=== PATIENT | female | born 1975 | race African-American/Black ===

== ENCOUNTER 2016-10-17 16:22 | Emergency (ER) | payer MEDICAID ==
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
[2016-10-17 18:13] VITALS: BP 117/71; PULSE 65; RESP 16; TEMP 98.5
== END 2016-10-17 18:41 | disposition home or self-care (01) ==
LOC: EC 16:22
DX: R51 Headache (principal); Z88.0 Allergy status to penicillin; Z87.81 Personal history of (healed) traumatic fracture
CPT/HCPCS: 70450; 72125; 99284

== ENCOUNTER → 2016-12-09 | Outpatient (CLI) | payer MEDICAID ==
[2016-12-09 16:36] LABS: CHCM 34.9; HCT 35.5 % (34.0-46.0); HDW 2.52; HGB 12.3 gm/dL (11.4-16.0); MCH 30.9 pg (25.0-35.0); MCHC 34.7 g/dL (31.0-37.0); MCV 89.1 fL (80.0-100.0); Mean Platelet Volume 6.9; RBC 3.98 m/uL (3.80-5.40)
[2016-12-09 16:58] LABS: ALT 26 U/L (9-52); AST 16 U/L (14-36); Alkaline Phosphatase 57 U/L (38-126); Anion Gap 6 mmol/L; Blood Urea Nitrogen 5 mg/dL (7-17); C Reactive Protein <5.0 mg/L (<10.0); Calcium 9.6 mg/dL (8.4-10.2); Carbon Dioxide 29 mmol/L (22-30); Chloride 100 mmol/L (98-107); Creatine Kinase 60 U/L (30-135); Glucose 87 mg/dL (74-99); Non-African American GFR(MDRD) >60 (>60 ml/min/1.73 sqM); Potassium 3.6 mmol/L (3.5-5.1); Sodium 135 mmol/L (137-145); Total Bilirubin 0.6 mg/dL (0.2-1.3); Total Protein 7.2 g/dL (6.3-8.2)
[2016-12-09 16:59] LABS: Rheumatoid Factor, Qnt 10 IU/mL (<12)
[2016-12-09 19:08] LABS: Erythrocyte Sedimentation Rate 18 mm/hr (0-20)
--- NOTE | 2016-12-09 23:18 | MR ---
EXAMINATION TYPE: MR cspine/lspine wo con DATE OF EXAM: 12/09/2016 9:17 PM COMPARISON: Lumbar spine of 09/17/2010 HISTORY: Neck pain, headaches, rt arm weakness, LBP, LLE radic Standard multiplanar, multisequence MRI departmental protocol Multiplanar, multisequence images of the cervical and lumbar spine were acquired. FINDINGS: Cervical vertebra are fairly normal spacing and alignment. Skull base appears normal. Brainstem is in tact. Cervical spinal cord has normal signal pattern without evidence of edema. There is no spinal st enosis. There is no cervical paraspinal mass. I see no cervical disc herniation. The lumbar vertebra have normal spacing and alignment. There is slight decreased signal in the discs at L4-5 and L5-S1. Lumbar nerve roots appear normal. The neural foramina are widely patent. There is a small posterior disc bulge at L4-5 and L5-S1 without impingement on the spinal canal. There is a de velopmentally large spinal canal. There is no lumbar paraspinal mass. The visualized sacroiliac joint s appear normal. There is no compression fracture. IMPRESSION: Negative MR scan of the cervical spine. Minor degenerative disc changes at L4-5 and L5-S1 that appear new compared to old exam. No spinal darrell nosis or fracture. Minimal disc bulging at L4-5 and L5-S1.
[2016-12-10 03:44] LABS: ANA w/Reflex to Titer POSITIVE (NEGATIVE)
== END | disposition home or self-care (01) ==
LOC: RADMRIMAIN 16:08
PROVIDERS: ATTEND Physician Assistant
DX: M51.27 Other intervertebral disc displacement, lumbosacral region (principal); M47.817 Spondylosis without myelopathy or radiculopathy, lumbosacral region; M54.2 Cervicalgia
CPT/HCPCS: 72141; 72148; 80053; 82550; 85027; 85652; 86038; 86039; 86140; 86431

== ENCOUNTER → 2017-01-24 | Outpatient (CLI) | payer MEDICAID ==
--- NOTE | 2017-01-25 08:02 | XR ---
EXAMINATION TYPE: XR Hip Complete LT DATE OF EXAM: 01/24/2017 4:35 PM COMPARISON: NONE HISTORY: Left hip pain TECHNIQUE: 2 view left hip FINDINGS: Femoral head articulates with the acetabulum. Joint spaces preserved. No acute fractures ar e evident. IMPRESSION: 1. Normal 2 view left hip
== END | disposition home or self-care (01) ==
LOC: RADXRMAIN 15:58
PROVIDERS: ATTEND Nurse Practitioner Acute Care
DX: M25.552 Pain in left hip (principal)
CPT/HCPCS: 73502

== ENCOUNTER → 2017-02-11 | Outpatient (CLI) | payer MEDICAID ==
[2017-02-11 17:51] LABS: ALT 28 U/L (9-52); AST 20 U/L (14-36); Alkaline Phosphatase 60 U/L (38-126); Anion Gap 9 mmol/L; Appearance,Urine Clear (Clear); Bacteria,Urine Occasional /hpf; Basophils % (A) 1 %; Bilirubin,Urine Negative (Negative); Blood Urea Nitrogen 8 mg/dL (7-17); C Reactive Protein <5.0 mg/L (<10.0); CH 31.5; CHCM 34.3; Calcium 9.5 mg/dL (8.4-10.2); Carbon Dioxide 29 mmol/L (22-30); Chloride 100 mmol/L (98-107); Creatine Kinase 74 U/L (30-135); Eosinophils % (A) 1 %; Glucose 84 mg/dL (74-99); Glucose,Urine (UA) Negative (Negative); HCT 36.5 % (34.0-46.0); HDW 2.71; HGB 12.4 gm/dL (11.4-16.0); Ketones,Urine Negative (Negative); Leukocyte Esterase,Urine Negative (Negative); Luc # (Auto) 0.09; Luc % (Auto) 2; Lymphocytes # (A) 1.7 k/uL (1.0-4.8); Lymphocytes % (A) 30 %; MCH 31.3 pg (25.0-35.0); MCHC 33.9 g/dL (31.0-37.0); MCV 92.3 fL (80.0-100.0); Monocytes # (A) 0.3 k/uL (0-1.0); Monocytes % (A) 5 %; Neutrophils # (A) 3.5 k/uL (1.3-7.7); Neutrophils % (A) 62 %; Nitrite,Urine Negative (Negative); Non-African American GFR(MDRD) >60 (>60 ml/min/1.73 sqM); Particle Count 1002; Protein,Urine Negative (Negative); RBC 3.95 m/uL (3.80-5.40); RBC,Urine 2 /hpf (0-5); RDW 13.8 % (11.5-15.5); Rheumatoid Factor, Qnt 19 IU/mL (<12); Sodium 138 mmol/L (137-145); Specific Gravity,Urine 1.003 (1.001-1.035); Squamous Epithelial Cell,Urine 1 /hpf (0-4); Total Bilirubin 0.5 mg/dL (0.2-1.3); Total Protein 7.7 g/dL (6.3-8.2); UA Billing (MACRO vs. MICRO) MICRO; Uric Acid 3.8 mg/dL (3.7-7.4); Urobilinogen,Urine <2.0 mg/dL (<2.0); WBC 5.7 k/uL (3.8-10.6); WBC (Perox) 5.14; WBC,Urine <1 /hpf (0-5)
[2017-02-11 18:34] LABS: Erythrocyte Sedimentation Rate 15 mm/hr (0-20)
[2017-02-11 19:13] LABS: Hepatitis B Surface Ag Index 0.06
[2017-02-11 19:30] LABS: Hepatitis C Virus IgG Index 0.04
[2017-02-11 19:39] LABS: Hepatitis C Virus IgG Ab Negative (Negative)
[2017-02-12 05:45] LABS: Complement Total (CH50) 128 CAE (54-144)
[2017-02-12 05:51] LABS: Cyclic Citrullinated Pep IgG 5 UNITS (<20)
[2017-02-12 06:03] LABS: Cardiolipin Ab IgG <9.0 GPL (<15); Cardiolipin Ab IgM 15.4 MPL (<12.5)
[2017-02-12 07:09] LABS: ANA w/Reflex to Titer POSITIVE (NEGATIVE)
[2017-02-12 11:20] LABS: Free Kappa Lt Chain Qnt, Serum 1.45 mg/dL (0.33 - 1.94); Kappa/Lambda Light Chain Ratio 1.28 (0.26 - 1.65)
[2017-02-12 12:09] LABS: Scleroderma 70 Antibody 5 UNITS (<20)
[2017-02-12 14:24] LABS: C-ANCA <1:20 Titer (<1:20); P-ANCA <1:20 Titer (<1:20)
[2017-02-13 05:21] LABS: Aldolase 3.2 U/L (1.2-7.6)
[2017-02-13 13:18] LABS: HLA B27 NEGATIVE; HLA B27 Comment SEEBELOW
[2017-02-16 14:58] LABS: Mis test requested (Blood) 14-3-3 eta Protein
== END | disposition home or self-care (01) ==
LOC: LABWHC1 16:06
PROVIDERS: ATTEND Internal Medicine Rheumatology
DX: R76.8 Other specified abnormal immunological findings in serum (principal)
CPT/HCPCS: 36415; 80053; 81001; 82085; 82164; 82306; 82550; 83516; 83520; 83883; 84165; 84439; 84443; 84550; 85025; 85613; 85652; 85730; 86038; 86039; 86140; 86147; 86160; 86162; 86200; 86225; 86235; 86255; 86334; 86431; 86803; 86812; 87340

== ENCOUNTER → 2017-06-23 | Outpatient (CLI) | payer MEDICAID ==
--- NOTE | 2017-06-23 10:55 | MM ---
Reason for exam: clinical finding. Last mammogram was performed 1 year and 2 months ago. History: Patient is nulliparous. Indicated problem(s): lump or thickening and pain in the right breast. Physical Findings: Nurse did not find any significant physical abnormalities on exam. MG 3D Diag Mammo W/Cad GIOVANI Bilateral CC and MLO view(s) were taken. Prior study comparison: April 19, 2016, bilateral MG screening mammo w CAD. April 30, 2012, left diagnostic mammogram w/CAD. There are scattered fibroglandular densities. No significant new findings when compared with previous films. These results were verbally communicated with the patient and result sheet given to the patient on 06/23/17. ASSESSMENT: Incomplete: need additional imaging evaluation, BI-RAD 0 RECOMMENDATION: Ultrasound of the right breast. (for upper inner quadrant palpable site)
--- NOTE | 2017-06-23 10:56 | USB ---
Reason for exam: additional evaluation requested from abnormal screening. History: Patient is nulliparous. US Breast RT Right breast ultrasound includes all four quadrants, the retroareolar region and axilla. Finding demonstrates no cystic or solid lesion seen. These results were verbally communicated with the patient and result sheet given to the patient on 06/23/17. ASSESSMENT: Negative, BI-RAD 1 RECOMMENDATION: Routine screening mammogram of both breasts in 1 year. Manage on a clinical basis with regard to any suspicious palpable areas.
== END | disposition home or self-care (01) ==
LOC: RADMAMWWP 08:48
PROVIDERS: ATTEND Family Medicine
DX: N64.4 Mastodynia (principal); N63 Unspecified lump in breast; R92.8 Other abnormal and inconclusive findings on diagnostic imaging of breast
CPT/HCPCS: 76641; G0204; G0279

== ENCOUNTER → 2017-11-20 | Outpatient (CLI) | payer MEDICAID ==
--- NOTE | 2017-11-20 13:13 | US ---
EXAMINATION TYPE: US abdomen complete DATE OF EXAM: 11/20/2017 COMPARISON: NONE CLINICAL HISTORY: R10.13 epigastric pain. EXAM MEASUREMENTS: Liver Length: 11.6 cm Gallbladder Wall: 0.2 cm CBD: 0.2 cm Spleen: 7.0 cm Right Kidney: 11.1 x 3.7 x 4.7 cm Left Kidney: 8.9 x 4.4 x 5.0 cm Pancreas: wnl Liver: wnl Gallbladder: wnl Evidence for sonographic Kelly's sign: no CBD: wnl Spleen: scattered echogenic foci noted throughout, somewhat obscured by overlying bowel gas Right Kidney: No hydronephrosis or masses seen Left Kidney: measures small, lower pole obscured by bowel gas Upper IVC: wnl Abd Aorta: Some portions obscured by overlying bowel gas, portions visualized wnl The liver is homogenous. The intrahepatic portion of the IVC and proximal abdominal aorta are within normal limits. There is no evidence of cholelithiasis. Common bile duct is unremarkable. The visu alized portions of the pancreas are homogenous. The spleen is unremarkable. Kidneys are symmetric a nd free of hydronephrosis. No renal lesions are seen. IMPRESSION: 1. Remote granulomatous disease. 2. Diminutive left kidney.
--- NOTE | 2017-11-20 15:22 | NM ---
EXAMINATION TYPE: NM hepatobiliary w EF DATE OF EXAM: 11/20/2017 COMPARISON: NONE HISTORY: Pain TECHNIQUE: After the intravenous administration of 5.3 mCi Tc 99m Mebrofenin hepatobiliary scintigrap hy is performed. Immediate images post injection. FINDINGS: There is satisfactory initial accumulation of tracer by the liver. The gallbladder is visualized wit hin 8 minutes. The small bowel activity is noted within 26 minutes. At one hour 8 ounces of oral en sure plus is given to mimic CCK and gallbladder ejection fraction is calculated at 63 %, in the tara l range. Therefore there is no scintigraphic evidence of cystic or common bile duct obstruction to s uggest acute cholecystitis or gallbladder dyskinesia. IMPRESSION: Exam is within normal limits.
== END | disposition home or self-care (01) ==
LOC: RADUSWWP 11:50
PROVIDERS: ATTEND Surgery Plastic and Reconstructive Surgery
DX: R10.13 Epigastric pain (principal)
CPT/HCPCS: 76700; 78226; A9537

== ENCOUNTER → 2017-12-17 | Day surgery (SDC) | payer MEDICAID ==
[2017-12-16 10:07] VITALS: BMI 35.8
[~2017-12-17] MED LIST: GLYCOPYRROLATE 0.2 MG/ML 2 ML VIAL ONE; LACTATED RINGERS 1,000 ML IV SCH; LIDOCAINE 1% 20 ML VIAL (10MG/ML) FOR IV START INTRADERMA ONE; PROPOFOL 10 MG/ML 20 ML VIAL IV ONE; fentaNYL (PF) 50 MCG/ML 2 ML AMP ONE
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
[2017-12-17 12:37] VITALS: RESP 16; TEMP 97.9
[2017-12-17 14:01] VITALS: BP 127/84; PULSE 71
--- NOTE | 2017-12-22 09:30 | P.PCN ---
Date of Procedure: 12/17/17 Description of Procedure: PREOPERATIVE DIAGNOSIS: Gastroesophageal reflux disease. POSTOPERATIVE DIAGNOSIS: Gastroesophageal reflux disease. Diaphragmatic hiatal hernia without obstruction. Erosive esophagitis. OPERATION: Esophagogastroduodenoscopy with biopsies along antrum. SURGEON: Kenya Rachel MD ANESTHESIA: MAC. INDICATIONS: The patient is a 42-year-old female who presents with a history of reflux disease. Benefits and risks of the procedure were described. Informed consent was obtained. DESCRIPTION: The patient was brought into the endoscopy suite and laid in the left lateral decubitus position. An Olympus gastroscope was passed along the posterior oropharynx down to the distal esophagus where the squamocolumnar junction was encountered at 35 cm from the incisors. The stomach was entered and no bile reflux was found. Additional findings are listed below. Biopsies with cold forceps were obtained of the antrum. The first through third portion of the duodenum was examined and unremarkable. Retroflexion of the scope confirmed Hill grade 4 lower esophageal valve. The squamocolumnar junction demostrated LA grade B erosive esophagitis. The stomach was desufflated. The patient tolerated the procedure well. FINDINGS: Squamocolumnar junction 35 cm from the incisors. Diaphragmatic hiatus at 40 cm. Hiatal hernia 5 cm, sliding type. Hill grade 4 lower esophageal valve. LA grade B erosive esophagitis. Superficial gastritis. No active duodenitis. RECOMMENDATIONS: Further recommendations pending results of pathology report. Upper endoscopy as needed. Will benefit from antireflux surgical procedure Plan - Discharge Summary New Discharge Prescriptions: No Action Multivit with Calcium,Iron,Min [Women's Multivitamin] 1 tab PO DAILY DULoxetine HCL [Cymbalta] 60 mg PO HS Discharge Medication List Multivit with Calcium,Iron,Min [Women's Multivitamin] 1 tab PO DAILY 10/17/16 [ History] DULoxetine HCL [Cymbalta] 60 mg PO HS 12/16/17 [History] Follow up Appointment(s)/Referral(s): Kenya Rachel MD [STAFF PHYSICIAN] - 01/06/18 8:45 am Patient Instructions/Handouts: *Surgery [facility] - (Anesthesia) Endoscopy Discharge Instructions, Hiatal Hernia (GEN), Upper Endoscopy (DC) Discharge Disposition: HOME SELF-CARE
== END | disposition home or self-care (01) ==
LOC: ORWHC2ENDO 10:35
PROVIDERS: ATTEND Surgery Plastic and Reconstructive Surgery
DX: K29.30 Chronic superficial gastritis without bleeding (principal); K21.0 Gastro-esophageal reflux disease with esophagitis; K22.10 Ulcer of esophagus without bleeding; K44.9 Diaphragmatic hernia without obstruction or gangrene; M79.7 Fibromyalgia; F39 Unspecified mood [affective] disorder; Z79.899 Other long term (current) drug therapy; Z88.0 Allergy status to penicillin
CPT/HCPCS: 81025; 88305; 43239; J3010; J2704

== ENCOUNTER → 2018-01-22 | Day surgery (SDC) | payer MEDICAID ==
[2018-01-21 09:38] VITALS: BMI 36.2
[2018-01-22 12:32] VITALS: BP 132/72; PULSE 84; RESP 16; TEMP 98.6
== END ==
LOC: ORWHC2ENDO 12:10
PROVIDERS: ATTEND Internal Medicine Gastroenterology
DX: K21.9 Gastro-esophageal reflux disease without esophagitis (principal); R11.10 Vomiting, unspecified; Z53.8 Procedure and treatment not carried out for other reasons
CPT/HCPCS: 91010

== ENCOUNTER 2018-03-23 09:43 | Inpatient (IN) | payer MEDICAID ==
[2018-03-18 16:00] VITALS: BMI 34.2
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
[~2018-03-23 09:43] MED LIST changes: +DEXAMETHASONE SOD PHOSPHATE 10 MG/ML 1 ML VIAL IV ONE; -GLYCOPYRROLATE 0.2 MG/ML 2 ML VIAL ONE; +HEPARIN SODIUM,PORCINE 5,000 UNIT/ML 1 ML VIAL SQ ONE; +HYDROmorphone 0.5 MG/0.5 ML SYRINGE IVP PRN; -LACTATED RINGERS 1,000 ML IV SCH; -LIDOCAINE 1% 20 ML VIAL (10MG/ML) FOR IV START INTRADERMA ONE; +ONDANSETRON 4 MG/2 ML VIAL IVP ONE; -PROPOFOL 10 MG/ML 20 ML VIAL IV ONE; +SCOPOLAMINE 1.5MG/72HR PATCH TRANSDERM STA; +ceFAZolin IN SWFI 2 GM/20 ML SYRINGE IVP ONE; -fentaNYL (PF) 50 MCG/ML 2 ML AMP ONE
[2018-03-23] MEDS: LACTATED RINGERS 1,000 ML IV SCH (10:27)
[2018-03-23] MEDS ORDERED: GLYCOPYRROLATE 0.2 MG/ML 2 ML VIAL ONE (10:36)
[2018-03-23] MEDS ORDERED: SUCCINYLCHOLINE CHLORIDE 100 MG/5 ML SYR IV ONE (10:36)
[2018-03-23] MEDS ORDERED: KETOROLAC 30 MG/ML 1 ML VIAL ONE (10:36)
[2018-03-23] MEDS ORDERED: ROCURONIUM BROMIDE 10 MG/ML 10 ML VIAL IV ONE (10:36)
[2018-03-23] MEDS ORDERED: PROPOFOL 10 MG/ML 20 ML VIAL IV ONE (10:36)
[2018-03-23] MEDS ORDERED: LIDOCAINE 1% INJ 10MG/ML (20 ML MDV) ONE (10:36)
[2018-03-23] MEDS ORDERED: HYDROmorphone (PF) 1 MG/ML ONE (10:36)
[2018-03-23] MEDS ORDERED: fentaNYL (PF) 50 MCG/ML 2 ML AMP ONE (10:36)
[2018-03-23] MEDS ORDERED: MIDAZOLAM 2 MG/2 ML VIAL ONE (10:36)
[2018-03-23] MEDS ORDERED: NEOSTIGMINE 1 MG/ML 10 ML VIAL ONE (10:36)
[2018-03-23 10:48] LABS: Basophils % (A) 1 %; Eosinophils % (A) 1 %; HCT 39.4 % (34.0-46.0); HGB 13.4 gm/dL (11.4-16.0); Lymphocytes # (A) 1.3 k/uL (1.0-4.8); Lymphocytes % (A) 23 %; MCH 29.8 pg (25.0-35.0); MCHC 33.9 g/dL (31.0-37.0); Mean Platelet Volume 6.4; Monocytes # (A) 0.2 k/uL (0-1.0); Monocytes % (A) 5 %; Neutrophils # (A) 3.7 k/uL (1.3-7.7); Neutrophils % (A) 69 %; Platelet Count 254 k/uL (150-450); RBC 4.47 m/uL (3.80-5.40); RDW 13.5 % (11.5-15.5); WBC 5.3 k/uL (3.8-10.6)
[2018-03-23 10:54] LABS: ALT 23 U/L (9-52); AST 20 U/L (14-36); Albumin 4.2 g/dL (3.5-5.0); Alkaline Phosphatase 62 U/L (38-126); Anion Gap 11 mmol/L; Blood Urea Nitrogen 6 mg/dL (7-17); Calcium 9.4 mg/dL (8.4-10.2); Carbon Dioxide 24 mmol/L (22-30); Chloride 104 mmol/L (98-107); Glucose 82 mg/dL (74-99); Potassium 3.8 mmol/L (3.5-5.1); Sodium 139 mmol/L (137-145); Total Bilirubin 0.7 mg/dL (0.2-1.3)
[2018-03-23] MEDS ORDERED: BUPIVACAINE (PF) 0.5% 30 ML VIAL SQ ONE (11:05)
[2018-03-23] MEDS ORDERED: ONDANSETRON 4 MG/2 ML VIAL IVP PRN (12:48)
[2018-03-23] MEDS ORDERED: NALOXONE 0.4 MG/ML 1 ML VIAL IV PRN (12:48)
[2018-03-23] MEDS ORDERED: HYDROcodone/APAP 5-325MG 1 EACH TAB PO PRN (12:48)
[2018-03-23] MEDS ORDERED: HYDROmorphone 0.5 MG/0.5 ML SYRINGE IVP PRN (12:51)
--- NOTE | 2018-03-23 12:57 | P.PCN ---
Date of Procedure: 03/23/18 Preoperative Diagnosis: Gastroesophageal reflux disease, symptomatic hiatal hernia, epigastric abdominal pain Postoperative Diagnosis: Same, multiple perigastric adenopathy Procedure(s) Performed: Robotic-assisted hiatal hernia repair with mesh, Intra-Op EGD Anesthesia: GETA, local Surgeon: Kenya Rachel Estimated Blood Loss (ml): 5 Pathology: other (Perigastric lymph nodes gastrohepatic ligament) Condition: stable Disposition: floor Operative Findings: 1. Hiatal hernia 3 x 3 cm, reducible 2. Thin hiatal tissue 3. Moderate perigastric adenopathy with biopsy sent 4. Hepatic adenoma right inferior lobe, 1-cm anterior surface 5. Less than 1 cm bilateral indirect inguinal hernia
[2018-03-23] MEDS ORDERED: ACETAMINOPHEN IV (For NPO) 1,000 MG in EMPTY BAG 1 BAG IVPB ONE (13:00)
[2018-03-23] MEDS: SODIUM CHLORIDE 0.9% 1,000 ML IV SCH ×2 (14:32→23:48)
[2018-03-23] MEDS: METOCLOPRAMIDE 5 MG/ML 2 ML VIAL IVP SCH ×2 (14:59→21:33)
--- NOTE | 2018-03-23 16:16 | FL ---
EXAMINATION TYPE: FL esophagus cervic/pharynx DATE OF EXAM: 03/23/2018 LIMITED UGI-ESOPHAGRAM: CLINICAL HISTORY: Hiatal hernia and reflux per patient status post Henry fundoplication surgery ear lier today. Comparison: Prior esophagram October 01, 2017 TECHNIQUE: Limited esophagram is performed utilizing 25 oz of Isovue-370. A total of 26 seconds of f luoroscopic time was utilized during procedure. 8 spot images are saved during procedure. FINDINGS: The patient swallowed contrast without difficulty or delay. Esophageal peristalsis and mo tility are within normal limits. There is good flow of contrast along the diaphragmatic hiatus into t he stomach, there is no evidence of contrast extravasation to suggest leak. No persistent hiatal nery ia is seen. Patient remains asymptomatic. Small amount of new free air under right hemidiaphragm is p resumed postsurgical. IMPRESSION: No evidence of leak or significant obstruction status post Henry fundoplication surgery earlier today.
[2018-03-23] MEDS: KETOROLAC 30 MG/ML 1 ML VIAL IVP SCH ×2 (18:08→23:48)
[2018-03-23] MEDS: ceFAZolin IN SWFI 2 GM/20 ML SYRINGE IVP SCH (18:15)
[2018-03-23] MEDS ORDERED: TAMSULOSIN 0.4 MG CAP.ER.24H PO STA (22:31)
--- NOTE | 2018-03-23 22:31 | P.PN ---
Subjective Progress Note Date: 03/23/18 She reports being unable to void following surgery. Esophagram negative for obstruction. She is tolerating liquid. Recommend Flomax. Straight cath as needed discussed. Likely discharge home tomorrow with tylenol for pain. Objective - Vital Signs Vital signs: Vital Signs Temp 98.5 F 03/23/18 13:01 Pulse 71 03/23/18 15:30 Resp 16 03/23/18 15:30 BP 103/56 03/23/18 15:30 Pulse Ox 99 03/23/18 15:30 Intake & Output 03/23/18 03/23/18 03/24/18 06:59 18:59 06:59 Intake Total 950 Output Total 5 Balance 945 Intake: IV 950 Output: Estimated Blood Loss 5 Other: # Voids 1 - Labs CBC & Chem 7: 03/23/18 10:23 03/23/18 10:23 Labs: Abnormal Lab Results - Last 24 Hours (Table) 03/23/18 Range/Units 10:23 BUN 6 L (7-17) mg/dL
[2018-03-24] MEDS: ceFAZolin IN SWFI 2 GM/20 ML SYRINGE IVP SCH (01:55)
[2018-03-24] MEDS: METOCLOPRAMIDE 5 MG/ML 2 ML VIAL IVP SCH ×2 (03:26→08:47)
[2018-03-24] MEDS: KETOROLAC 30 MG/ML 1 ML VIAL IVP SCH (06:03)
[2018-03-24] MEDS: SODIUM CHLORIDE 0.9% 1,000 ML IV SCH (08:58)
[2018-03-24] MEDS ORDERED: PANTOPRAZOLE 40 MG/10 ML VIAL IV SCH (09:00)
[2018-03-24] MEDS ORDERED: ENOXAPARIN 30 MG/0.3 ML SYRINGE SQ SCH (09:00)
[2018-03-24] MEDS: LACTATED RINGERS 1,000 ML IV SCH (10:26)
--- NOTE | 2018-03-24 11:35 | P.DS ---
Providers Date of admission: 03/23/18 09:43 Expected date of discharge: 03/24/18 Attending physician: Kenya Rachel Primary care physician: [place] [facility] Course: 42-year-old female presented on elective admission to undergo robotic-assisted hiatal hernia repair with mesh for symptomatic esophageal reflux disease with a symptomatic hiatal hernia. On the day of discharge patient was up ambulatory on the unit urinating with no difficulty tolerating diet as ordered surgical dressing sites dry afebrile and on room air sats are 97% Impression discharge diagnosis Symptomatic hiatal hernia Esophageal reflux disease symptomatic Peraesophageal hiatal hernia with gastroesophageal reflux disease Status post March 23 Robotic-assisted hiatal hernia repair with mesh, Intra-Op EGD The above impression and plan of care have been discussed and directed by signing physician. Radha Sultana nurse practitioner acting as scribe for signing physician. Plan - Discharge Summary Discharge Rx Participant: No New Discharge Prescriptions: New Bisacodyl [Dulcolax] 5 mg PO DAILY PRN #10 tablet. PRN Reason: Constipation Ondansetron Odt [Zofran Odt] 4 mg PO Q8HR PRN #9 tab PRN Reason: Nausea Simethicone 40 mg/0.6 ml Drops [Mylicon Drops] 40 mg PO PCHS PRN #30 ml PRN Reason: Gas Continue RX: Ibuprofen [Motrin] 800 mg PO Q6H PRN PRN Reason: Pain Discontinued Omeprazole [PriLOSEC] 20 mg PO AC-BRKFST Discharge Medication List RX: Ibuprofen [Motrin] 800 mg PO Q6H PRN 03/18/18 [History] Bisacodyl [Dulcolax] 5 mg PO DAILY PRN #10 tablet. 03/24/18 [Rx] Ondansetron Odt [Zofran Odt] 4 mg PO Q8HR PRN #9 tab 03/24/18 [Rx] Simethicone 40 mg/0.6 ml Drops [Mylicon Drops] 40 mg PO PCHS PRN #30 ml [Rx] Follow up Appointment(s)/Referral(s): Kenya Rachel MD [STAFF PHYSICIAN] - 04/02/18 9:30 am Patient Instructions/Handouts: Laparoscopic Hiatal Hernia Repair (DC) Activity/Diet/Wound Care/Special Instructions: Liquid diet for 2 weeks until seen by your surgeon.( follow instructions sheet given to you by bandoleer straightener stamper.) no straws no carbonation May shower. NO bath tub soaks. Call office for any fever, chills, increased redness or discolored drainage from puncture sites or any concerns. no heavy lifting or strenuous activity. Continue to use incentive spirometery at home. Last received toradol iv at 0600 same family as motrin. may have next at 1200 Last received [place] at 1020. Discharge Disposition: HOME SELF-CARE
[2018-03-24 12:15] VITALS: BP 101/58; PULSE 78; RESP 19; TEMP 98.2
--- NOTE | 2018-03-29 18:24 | P.OP ---
Date of Procedure: 03/23/18 Description of Procedure: SURGEON: LARRY PERKINS MD PREOPERATIVE DIAGNOSES: 1. Gastroesophageal reflux disease. 2. Paraesophageal hiatal hernia, midline 3. Fibromyalgia 4. Obesity due to excess calories, BMI 34.2 5. Epigastric abdominal pain POSTOPERATIVE DIAGNOSES: 1. Gastroesophageal reflux disease. 2. Paraesophageal hiatal hernia reducible paraesophageal midline, 3 x 3 cm 3. Fibromyalgia 4. Obesity due to excess calories, BMI 34.2 5. Hepatic adenoma, right inferior lobe 6. Bilateral indirect inguinal hernia, initial 7. Perigastric adenopathy 8. Epigastric abdominal pain OPERATION: 1. Robotic-assisted da Fransisco Xi laparoscopic reduction and repair of incarcerated paraesophageal hiatal hernia, 3 x 3 cm, with [place] Biopatch A 8 x 8 cm 2. Intraoperative esophagogastroduodenoscopy COMPLICATIONS: None. Anesthesia: GETA, local Estimated Blood Loss (ml): 5 Pathology: other (Perigastric lymph nodes gastrohepatic ligament) Condition: stable Disposition: floor Operative Findings: 1. Hiatal hernia 3 x 3 cm, reducible 2. Thin hiatal tissue 3. Moderate perigastric adenopathy with biopsy sent 4. Hepatic adenoma right inferior lobe, 1-cm anterior surface 5. Less than 1 cm bilateral indirect inguinal hernia INDICATIONS: The patient is a 42-year-old female who presents with gastroesophageal reflux and a symptomatic diaphragmatic hiatal hernia. Preoperative workup including upper endoscopy demonstrated hiatal hernia. She completed an esophageal manometry. Given the severity of her symptoms, she had elected for surgical intervention. Benefits and risks including bleeding, infection, recurrence, dysphagia, injury to the lung, need for further surgery was described at length. Informed consent was obtained. DESCRIPTION: The patient was brought into the operating room and placed in supine position. Preoperatively he had received heparin subcutaneously for DVT prophylaxis. After general induction, the abdomen was prepped and draped in standard sterile fashion. The patient had previously voided prior to coming to the operating room. [place] draping was placed along the abdomen. A timeout protocol was confirmed with the surgical team, for which the patient's name, procedure to be performed including DVT prophylaxis with bilateral SCDs, and preoperative antibiotics were also confirmed. Robotic da Fransisco Xi system was prepped and primed. At 12 cm from the xiphoid to just below the umbilicus, proposed port sites were marked with indelible marker along the left axillary line, left mid-clavicular line with each ports were marked 10 cm from each other. A 5 mm 0 degrees laparoscopic trocar entry was performed along the left upper quadrant. The abdomen was insufflated to 15 mmHg pressure he tolerated well. Diagnostic laparoscopy demonstrated no injury to bowel, viscera, or mesentery. The gallbladder was unremarkable. The liver surface was remarkable for hepatic adenoma 1-cm along the right inferior lobe anterior surface. Within the pelvis , less than 1 cm bilateral indirect inguinal hernia was identified. No injury had occurred to the small bowel or viscera. Along the hiatus, moderate size hiatal hernia anterior aspect involving the upper pole of the stomach. Next, one 8 mm robotic port was placed along the right upper abdomen. An 8-mm port was were placed along the left lateral abdominal wall. The camera 8-mm port was maintained along the epigastrium via the hernia defect. A 12 mm port was placed along the left upper abdominal wall after exchanging the 5 mm port. Please note that the ports were placed at least 20 cm away from the target anatomy. Care was taken to check that each robotic arm were safely away from collision with the bed or the patient. At the epigastrium, a medium sized [place] liver retractor was placed under direct visualization with the Iron Bit Sander placed over the right shoulder of the patient. The additional third robotic arm was used.. The patient was repositioned in reverse Trendelenburg position at 14-degrees after lowering the bed. The robot was docked above the left side of the patient. Using a grasper for arm 3, a grasper for arm 1, including vessel sealer for arm 4, the robotic system was docked and primed as described. Instruments were interchanged by the assistant purchasing manager. I had sat at the console. The phrenoesophageal ligament was incised and the distal esophagus was mobilized circumferentially. Care was taken to avoid any injury to the bilateral vagi nerves. An incarcerated hiatal hernia sac was found along the mediastinum and retracted into the abdominal cavity. Next dissection into the mediastinum was performed to the mid esophagus. The left and right crura was identified. The hiatal hernia sac was incarcerated into the mediastinum and divided to allow complete mobilization and freeing of the distal esophagus into the abdominal cavity. Care was taken to avoid any gastrotomy to the incarcerated upper pole of the stomach. The measured defect was consistent with 3 cm length and 3 cm in width. The distal esophagus of at least 3 cm was brought into the abdominal cavity. The hiatus tissue was very thin. Moderate perigastric adenopathy was identified with excisional biopsy of lymph node sent fresh for pathological analysis. Once the hiatus and crura was dissected, 2-0 VLOC sutures were placed as a running suture to re-approximate the diaphragmatic hiatus posteriorly. To buttress the repair, a [place] Biopatch A was prepared along the back table and cut in a liz-hole fashion as to reinforce the repair as an underlay. The mesh was placed along the crural repair posteriorly then cut in half and tagged using horizontal mattress sutures using 2-0 VLOC. I went to the head of the bed to perform intraoperative esophagogastroduodenoscopy. An Olympus gastroscope was passed through the posterior oropharynx, where the GE junction was found distal to the diaphragmatic hiatus. The intra-abdominal esophageal length obtained during the case was over 3 cm. The stomach was entered. The duodenum was unremarkable. Retroflexion of the scope confirmed a Hill grade 1+ lower esophageal valve. The stomach had been desufflated. No evidence of leaks were found or mucosal defects of the esophagus or stomach. This concluded the endoscopic portion of the case. The robot was undocked from the patient. I re-scrubbed into the case. All instruments and pneumoperitoneum were evacuated from the abdominal cavity. Incisions were reapproximated using 4-0 Monocryl in an interrupted subcuticular fashion. All incisions were cleaned using dilute hydrogen peroxide. The 12-mm port site fascial defect was less than 8 mm in size. Dermabond was applied to the skin. Local anesthetic was infiltrated in all wounds for postop analgesia. Multiple intra-abdominal films were obtained. At the end of the procedure, needle, sponge, and instrument count was verified correct by the surgical instrument maker. The patient had tolerated the procedure well and was taken to the postanesthesia unit in stable condition. Intraoperative films were reviewed with the patient's family who were pleased with the level of care.
== END 2018-03-24 12:25 | disposition home or self-care (01) | DRG 328 ==
LOC: 2ORMAIN 09:43 → 6PED 12:30
PROVIDERS: ADMIT Surgery Plastic and Reconstructive Surgery; ATTEND Surgery Plastic and Reconstructive Surgery
PROC: 07BB4ZX Excision of Mesenteric Lymphatic, Percutaneous Endoscopic Approach, Diagnostic (ICD-10-PCS; principal; 2018-03-23 11:55)
PROC: 8E0W0CZ Robotic Assisted Procedure of Trunk Region, Open Approach (ICD-10-PCS; principal; 2018-03-23 11:55)
PROC: 0BUT0JZ Supplement Diaphragm with Synthetic Substitute, Open Approach (ICD-10-PCS; principal; 2018-03-23 11:55)
PROC: 0DJ08ZZ Inspection of Upper Intestinal Tract, Via Natural or Artificial Opening Endoscopic (ICD-10-PCS; principal; 2018-03-23 11:55)
DX: K44.0 Diaphragmatic hernia with obstruction, without gangrene (principal); K40.90 Unilateral inguinal hernia, without obstruction or gangrene, not specified as recurrent; D13.4 Benign neoplasm of liver; K21.9 Gastro-esophageal reflux disease without esophagitis; M79.7 Fibromyalgia; Z79.899 Other long term (current) drug therapy; Z87.81 Personal history of (healed) traumatic fracture; Z88.0 Allergy status to penicillin; E66.09 Other obesity due to excess calories; Z68.34 Body mass index [BMI] 34.0-34.9, adult; R59.0 Localized enlarged lymph nodes
CPT/HCPCS: 36415; 74210; 80053; 81025; 83735; 85025; 86850; 86900; 86901; 88307

== ENCOUNTER → 2018-08-20 | Outpatient (CLI) | payer MEDICAID ==
--- NOTE | 2018-08-20 11:56 | FL ---
ESOPHOGRAM. HISTORY: Dysphagia,hiatal hernia repair in March. Comparison 03/23/2018 Esophagram was performed per the air contrast technique. The patient swallowed barium and effervesce nt crystals without difficulty or delay. Esophageal peristalsis and motility appear to be within normal limits. There is no evidence for filling defect, mass or diverticulum. No hiatal hernia seen. Postoperative changes of prior Henry fundoplication. Subsequently single contrast cervical esophagram was performed which fails demonstrate evidence for a spiration penetration or mass. IMPRESSION: Unremarkable study.
== END ==
LOC: RADFLWHC 10:58
PROVIDERS: ATTEND Surgery Plastic and Reconstructive Surgery
DX: K44.9 Diaphragmatic hernia without obstruction or gangrene (principal)
CPT/HCPCS: 74220

== ENCOUNTER → 2019-02-15 | Outpatient (CLI) | payer MEDICAID ==
[2019-02-15 17:19] LABS: Basophils % (A) 1 %; Eosinophils # (A) 0.1 k/uL (0-0.7); Eosinophils % (A) 1 %; HCT 37.8 % (34.0-46.0); HGB 12.6 gm/dL (11.4-16.0); Lymphocytes # (A) 1.9 k/uL (1.0-4.8); Lymphocytes % (A) 28 %; MCH 30.3 pg (25.0-35.0); MCHC 33.2 g/dL (31.0-37.0); MCV 91.3 fL (80.0-100.0); Mean Platelet Volume 6.7; Monocytes # (A) 0.3 k/uL (0-1.0); Monocytes % (A) 5 %; Neutrophils # (A) 4.4 k/uL (1.3-7.7); Neutrophils % (A) 65 %; Platelet Count 254 k/uL (150-450); RBC 4.14 m/uL (3.80-5.40); RDW 14.1 % (11.5-15.5); WBC 6.8 k/uL (3.8-10.6)
[2019-02-15 23:56] LABS: Albumin 4.1 g/dL (3.80-4.90); Albumin/Globulin Ratio 1.71 (1.60-3.17); Anion Gap 11.5 mmol/L (4.00-12.00); Calcium 9.3 mg/dL (8.7-10.3); Carbon Dioxide 24.5 mmol/L (21.6-31.8); Globulin 2.4 g/dL (1.6-3.3); LDL Cholesterol,Calculated 133.8 mg/dL (0.0-131.0); Potassium 3.7 mmol/L (3.5-5.5); Total Bilirubin 0.7 mg/dL (0.2-1.2); Total Protein 6.5 g/dL (6.2-8.2); VLDL Calculation 14.2 mg/dL (5.00-40.00)
[2019-02-16 00:07] LABS: T4, Free (Free Thyroxine) 1.1 ng/dL (0.80-1.80)
== END ==
LOC: LABWHC1 15:57
PROVIDERS: ATTEND Nurse Practitioner Women's Health
DX: Z00.00 Encounter for general adult medical examination without abnormal findings (principal); L65.9 Nonscarring hair loss, unspecified; R53.83 Other fatigue
CPT/HCPCS: 36415; 80053; 80061; 84439; 84443; 85025

== ENCOUNTER → 2019-04-14 | Outpatient (CLI) | payer MEDICAID ==
--- NOTE | 2019-04-16 10:28 | MM ---
Reason for exam: screening (asymptomatic). Last mammogram was performed 1 year and 10 months ago. History: Patient is nulliparous. Physical Findings: A clinical breast exam by your physician is recommended on an annual basis and results should be correlated with mammographic findings. MG Screening Mammo w CAD Bilateral CC and MLO view(s) were taken. Prior study comparison: June 23, 2017, bilateral MG 3d diag mammo w/cad GIOVANI. April 19, 2016, bilateral MG screening mammo w CAD. There are scattered fibroglandular densities. Finding: There is a 3 mm high density, circumscribed oval mass in the subareolar position of the right breast. New finding since June 23, 2017 and April 19, 2016. ASSESSMENT: Incomplete: need additional imaging evaluation, BI-RAD 0 RECOMMENDATION: Special view mammogram of the right breast. If lesion persists on supplemental views, image directed ultrasound is recommended. [facility] will attempt to contact patient to return for supplemental views and ultrasound if indicated.
== END | disposition home or self-care (01) ==
LOC: RADMAMWWP 15:43
PROVIDERS: ATTEND Family Medicine
DX: Z12.31 Encounter for screening mammogram for malignant neoplasm of breast (principal)
CPT/HCPCS: 77067

== ENCOUNTER → 2019-04-28 | Outpatient (CLI) | payer MEDICAID ==
--- NOTE | 2019-04-28 10:51 | MM ---
Reason for exam: additional evaluation requested from abnormal screening. Last mammogram was performed less than 1 month ago. History: Patient is nulliparous. Physical Findings: Nurse did not find any significant physical abnormalities on exam. MG Work Up Mamm w CAD RT Spot compression CC, spot compression MLO, and ML view(s) were taken of the right breast. Prior study comparison: April 14, 2019, bilateral MG screening mammo w CAD. June 23, 2017, bilateral MG 3d diag mammo w/cad GIOVANI. There are scattered fibroglandular densities. No distinct lesion persists on additional views provided. These results were verbally communicated with the patient and result sheet given to the patient on 04/28/19. ASSESSMENT: Negative, BI-RAD 1 RECOMMENDATION: Return to routine screening mammogram schedule for both breasts.
== END | disposition home or self-care (01) ==
LOC: RADMAMWWP 09:05
PROVIDERS: ATTEND Family Medicine
DX: R92.8 Other abnormal and inconclusive findings on diagnostic imaging of breast (principal)
CPT/HCPCS: 77065

== ENCOUNTER → 2019-11-24 | Outpatient (CLI) | payer MEDICAID ==
--- NOTE | 2019-11-24 21:06 | CONS ---
CONSULTATION DATE OF SERVICE: 11/24/2019 44-year-old lady has been evaluated in Sleep Center for excessive daytime sleepiness and awakenings from sleep. HISTORY OF PRESENT ILLNESS/SLEEP-WAKE EVALUATION: SLEEP SCHEDULE: Patient's usual sleep schedule from 7:30 to 8:30 pm 2 days a week to 3:45 am and 3 days a week, 5:45 am on working days and on weekends until 7:30 am. FALLING ASLEEP: Sometimes patient may have problem with falling asleep, has TV set in bedroom. DURING SLEEP: Sleeps on the side position or stomach position. Prefer not to sleep on the back. According to her family, she does not snore. She wakes up from sleep 2 times with nocturia. DURING THE DAY/SLEEP WAKE EVALUATION: The patient feels significantly sleepy during the day. [place] Sleepiness Scale increased to 14. She has problems with concentration. She may take naps at around 5 or 6:00 pm. Usually does not see vivid dreams during the naps. No history of hypnagogic hallucinations, sleep paralysis or cataplexy. PAST MEDICAL HISTORY: Past medical history of fibromyalgia. PAST SURGICAL HISTORY: Hernia repair and November of 1997. SOCIAL HISTORY: Negative for smoking or using alcohol. FAMILY HISTORY: Hypertension, hyperlipidemia, fibromyalgia, arthritis, thyroid problems, acid reflux. REVIEW OF SYSTEMS: Awakenings from sleep, significant excessive daytime sleepiness. PHYSICAL EXAM: lady without distress, BP 116/61, HR 80, RR 16, height 5 feet 2 inches, weight 183 pounds. Body mass index 33.4, temperature 97.6, oxygen saturation on room air 100%. Oropharynx extremely low position of soft palate. Mallampati 4. Neck is 13-1/2 inches in circumference. NECK: Supple, no JVD. Thyroid is not palpable. LUNGS: Clear to percussion and to auscultation. Good air exchange. No wheezing or rhonchi. HEART: S1, S2 regular. No murmurs, gallops, or rubs. ABDOMEN: Soft and nontender. Bowel sounds are present. No organomegaly appreciated. EXTREMITIES: No clubbing or cyanosis. MULTIMEDIA AUTHOR: Awake, alert, and oriented X3. Cranial nerves 2 to 7 intact. There is no fasciculation or atrophy. noted. No focal deficits observed. IMPRESSION: 1. Excessive daytime sleepiness. [place] Sleepiness Scale significantly increased to 14. The patient may take naps during the day. Differential diagnosis includes hypersomnia and narcolepsy without cataplexy. 2. Awakenings from sleep, extremely low position of soft palate, Mallampati 4, sleepiness. Possible obstructive sleep apnea-hypopnea syndrome. 3. History of fibromyalgia. 4. Status post Halo in 1997. 5. Status post hernia repair. PLAN: 1. Polysomnography for evaluation of patient's breathing during sleep. 2. CPAP/BiPAP titration if sleep study confirms obstructive sleep apnea-hypopnea syndrome. 3. Preferable position during sleep on the side. 4. No driving if patient feels any sleepiness. 5. I will see patient for follow up visit to explain results of testing and following plan. 6. Multiple sleep latency test for objective evaluation of patient's symptoms of excessive daytime sleepiness if the sleep study will be negative for obstructive sleep apnea-hypopnea syndrome. Thank you very much for referring this patient for consultation. Sincerely, Dayo Christensen MD, PhD, FAASM Diplomat of [employer] [facility] [place] MMODL / IJN: [id number] /
== END | disposition home or self-care (01) ==
LOC: SLEEP 16:31
PROVIDERS: ATTEND Internal Medicine
DX: G47.33 Obstructive sleep apnea (adult) (pediatric) (principal); Z87.39 Personal history of other diseases of the musculoskeletal system and connective tissue; Z98.890 Other specified postprocedural states
CPT/HCPCS: 99211

== ENCOUNTER → 2020-04-13 | Outpatient (CLI) | payer MEDICAID ==
--- NOTE | 2020-04-13 12:56 | FL ---
EXAMINATION TYPE: FL barium swallow DATE OF EXAM: 04/13/2020 CLINICAL INDICATION: 44-year-old female K44.9, hiatal hernia. Prior hiatal hernia repair in 2018. COMPARISON: 08/20/2018 Total Fluoroscopy Time: 1 minute 51 seconds Total images: 32 FINDINGS: The swallowing mechanism is normal and hypopharyngeal anatomy is preserved. The cervical and thoracic portions have a normal course and caliber and normal motility. The mucosa is normal and no persistent filling defect is encountered. No recurrent hiatal hernia is identified. Gastroesophageal reflux could not be elicited during the co urse of the exam. IMPRESSION: No recurrent hiatal hernia identified. No specific abnormality seen.
== END | disposition home or self-care (01) ==
LOC: RADUSWWP 10:47
PROVIDERS: ATTEND Surgery Plastic and Reconstructive Surgery
DX: K44.9 Diaphragmatic hernia without obstruction or gangrene (principal)
CPT/HCPCS: 74220

== ENCOUNTER 2020-05-10 07:54 | Day surgery (SDC) | payer MEDICAID ==
[2020-05-08 18:07] VITALS: BMI 34.9
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
[~2020-05-10 07:54] MED LIST changes: -DEXAMETHASONE SOD PHOSPHATE 10 MG/ML 1 ML VIAL IV ONE; -HEPARIN SODIUM,PORCINE 5,000 UNIT/ML 1 ML VIAL SQ ONE; -HYDROmorphone 0.5 MG/0.5 ML SYRINGE IVP PRN; +LACTATED RINGERS 1,000 ML IV SCH; -ONDANSETRON 4 MG/2 ML VIAL IVP ONE; -SCOPOLAMINE 1.5MG/72HR PATCH TRANSDERM STA; -ceFAZolin IN SWFI 2 GM/20 ML SYRINGE IVP ONE
[2020-05-10 08:23] VITALS: RESP 16; TEMP 97.9
[2020-05-10] MEDS ORDERED: PROPOFOL 10 MG/ML 20 ML VIAL IV ONE (08:30)
[2020-05-10] MEDS ORDERED: MIDAZOLAM 2 MG/2 ML VIAL ONE (08:30)
[2020-05-10] MEDS ORDERED: LIDOCAINE 1% INJ 10MG/ML (20 ML MDV) ONE (08:30)
[2020-05-10] MEDS ORDERED: fentaNYL (PF) 50 MCG/ML 2 ML AMP ONE (08:30)
--- NOTE | 2020-05-10 09:09 | P.PCN ---
Date of Procedure: 05/10/20 Description of Procedure: PREOPERATIVE DIAGNOSIS: Dysphagia. Gastroesophageal reflux disease POSTOPERATIVE DIAGNOSIS: Dysphagia. Gastroesophageal reflux disease Esophageal stricture OPERATION: Esophagogastroduodenoscopy with balloon dilation, 18 mm SURGEON: Kenya Rachel MD ANESTHESIA: MAC. INDICATIONS: The patient is a 44-year-old male who presents with a history of dysphagia. Benefits and risks of the procedure were described. Informed consent was obtained. DESCRIPTION: The patient was brought into the endoscopy suite and laid in the left lateral decubitus position. After a timeout was confirmed, the procedure was initiated. An Olympus gastroscope was passed and the stomach was entered. Mild gastritis was identified. The scope was advanced to the duodenum which was unremarkable. Retroflexion the scope confirmed a Hill grade 1 lower esophageal valve. Next a Reading Ezakus balloon dilator was placed to 18 mm along the GE junction. The balloon was dilated for 2 minutes. No full-thickness injury was encountered. The GI tract was desufflated. The patient tolerated the procedure well. FINDINGS: Squamocolumnar junction unremarkable at 40 cm. Esophagogastric junction dilated Balloon dilated to 18 mm. No hiatus hernia Hill grade 1 lower esophageal valve. No LA grade A esophagitis. RECOMMENDATIONS: Upper endoscopy as needed Plan - Discharge Summary Discharge Rx Participant: No New Discharge Prescriptions: Continue Cholecalciferol [Vitamin D3 (25 Mcg = 1000 Iu)] 5,000 unit PO DAILY Discontinued Apple Cider Vinegar Gummies 6 units PO DAILY Discharge Medication List Cholecalciferol [Vitamin D3 (25 Mcg = 1000 Iu)] 5,000 unit PO DAILY 05/08/20 [History] Follow up Appointment(s)/Referral(s): Kenya Rachel MD [STAFF PHYSICIAN] - 05/30/20 Patient Instructions/Handouts: *Surgery [facility] - (Anesthesia) Endoscopy Discharge Instructions, Upper Endoscopy (DC), Esophageal Dilation (DC) Activity/Diet/Wound Care/Special Instructions: Diet as tolerated Discharge Disposition: HOME SELF-CARE
[2020-05-10 09:17] VITALS: BP 122/78; PULSE 67
== END 2020-05-10 10:03 | disposition home or self-care (01) ==
LOC: ORWHC2ENDO 07:54
PROVIDERS: ATTEND Surgery Plastic and Reconstructive Surgery
DX: K22.2 Esophageal obstruction (principal); K21.9 Gastro-esophageal reflux disease without esophagitis; M79.7 Fibromyalgia; Z98.890 Other specified postprocedural states; R10.9 Unspecified abdominal pain; Z88.0 Allergy status to penicillin
CPT/HCPCS: 43249; J2250; J2001; J3010; J2704; C1726

== ENCOUNTER → 2020-08-23 | Outpatient (CLI) | payer MEDICAID ==
--- NOTE | 2020-08-24 01:00 | SFUN ---
SLEEP CENTER FOLLOW UP NOTE DATE OF SERVICE: 08/23/2020 This 44-year-old lady has been followed in sleep center to discuss results of sleep studies and following plan. About 2 weeks ago, patient had polysomnogram with the following multiple sleep latency test. I discussed results of sleep studies with patient in details. Polysomnogram did not show any abnormalities of respiration at all. Apnea-hypopnea index of only 0.2. Lowest oxygen level 95.1%. No periodic limb movements have been documented during the sleep study. Multiple sleep latency test done on the following day consisted from 5 naps. No REM, no sleep onset REM periods documented. Mean sleep latency from 5 naps 9.9 minutes, which is borderline. Mean sleep latency for 4 naps about 7-1/2 minutes. On nap 4, it was lawnmower which could be the factor that did not let patient fall asleep on the last nap. Today, [place] Sleepiness Scale is 6, which is in normal range. PHYSICAL EXAMINATION: GENERAL: Patient in no distress. VITAL SIGNS: BP 109/68, HR 80, RR 15, oxygen saturation at room air 100%. Height 5 feet 2 inches, weight 183, BMI 33.2, temperature 98.5. HEENT: PERRLA, EOMI. Low position of soft palate. NECK: Supple, no JVD. Thyroid is not palpable. LUNGS: Clear to percussion and to auscultation. Good air exchange. No wheezing or rhonchi. HEART: S1, S2 regular. No murmurs, gallops, or rubs. ABDOMEN: Soft and nontender. Bowel sounds are present. No organomegaly appreciated. EXTREMITIES: No clubbing or cyanosis. SAFETY SUPERVISOR: Awake, alert, and oriented X3. Cranial nerves 2 to 7 intact. There is no fasciculation or atrophy. noted. No focal deficits observed. IMPRESSION: 1. No respiratory abnormalities during the sleep. Normal oxygenation. 2. Results of multiple sleep latency test borderline. Today [place] Sleepiness Scale is in normal range. 3. History of fibromyalgia. 4. Status post hernia repair. PLAN: 1. Sleep hygiene with regular time in bed for at least 8 hours. 2. Precautions related to driving. No driving if feeling sleepiness. Patient promised to follow recommendations. She is aware of civil and criminal liability for unsafe driving. 3. I discussed with the patient possibility to start medications for the daytime to prevent sleepiness but presently the patient prefers not to do that. 4. If patient excessive daytime sleepiness will be present, the patient should return to sleep center as soon as possible. Otherwise, followup visit in 6 months. Thank you very much for allowing me to participate in management of your patient. Sincerely, Dayo Christensen MD, PhD, FAASM Diplomat of [employer] [facility] [place] MMODL / WILLIAMN: [id number] / MTDHao
== END | disposition home or self-care (01) ==
LOC: SLEEP 14:48
PROVIDERS: ATTEND Internal Medicine
DX: G47.30 Sleep apnea, unspecified (principal); Z87.39 Personal history of other diseases of the musculoskeletal system and connective tissue; Z98.890 Other specified postprocedural states

== ENCOUNTER → 2021-02-15 | Outpatient (CLI) | payer MEDICAID ==
--- NOTE | 2021-02-16 15:04 | MM ---
Reason for exam: screening (asymptomatic). Last mammogram was performed 1 year and 10 months ago. History: Patient is nulliparous. Physical Findings: A clinical breast exam by your physician is recommended on an annual basis and results should be correlated with mammographic findings. MG Screening Mammo w CAD Bilateral CC and MLO view(s) were taken. XCCL view(s) were taken of the left breast. Prior study comparison: April 28, 2019, right breast MG work up mamm w CAD RT. April 14, 2019, bilateral MG screening mammo w CAD. The breast tissue is almost entirely fat. No significant changes when compared with prior studies. ASSESSMENT: Negative, BI-RAD 1 RECOMMENDATION: Routine screening mammogram of both breasts in 1 year.
== END | disposition home or self-care (01) ==
LOC: RADMAMWWP 16:21
PROVIDERS: ATTEND Family Medicine
DX: Z12.31 Encounter for screening mammogram for malignant neoplasm of breast (principal)
CPT/HCPCS: 77067

== ENCOUNTER → 2021-09-27 | Outpatient (CLI) | payer MEDICAID ==
--- NOTE | 2021-09-27 12:40 | FL ---
EXAMINATION TYPE: FL barium swallow DATE OF EXAM: 09/27/2021 CLINICAL INDICATION: 45-year-old female K44.9 DIAPHRAGMATIC HERNIA WITHOUT OBSTRUCTION OR GANGRENE COMPARISON: 04/13/2020 Total Fluoroscopy Time: 2 minutes 24 seconds 44 images obtained. FINDINGS: The swallowing mechanism is normal and hypopharyngeal anatomy is preserved. The cervical and thoracic portions have a normal course and caliber and normal motility. Postsurgical change of previous hiatal hernia repair is demonstrated. No recurrent hiatal hernia. No stricture or abnormal narrowing. The mucosa is normal and no persistent filling defect is encountered. No gastroesophageal reflux could be elicited during the course of the exam. IMPRESSION: No recurrent hiatal hernia or other specific abnormality seen.
== END | disposition home or self-care (01) ==
LOC: RADUSWWP 09:07
PROVIDERS: ATTEND Surgery Plastic and Reconstructive Surgery
DX: K44.9 Diaphragmatic hernia without obstruction or gangrene (principal)
CPT/HCPCS: 74220

== ENCOUNTER → 2021-10-31 | Outpatient (CLI) | payer MEDICAID ==
--- NOTE | 2021-10-31 10:24 | US ---
EXAMINATION TYPE: US gallbladder DATE OF EXAM: 10/31/2021 COMPARISON: NONE CLINICAL HISTORY: K81.1. Intermittent RUQ pain and nausea EXAM MEASUREMENTS: Liver Length: 14.7 cm Gallbladder Wall: 0.2 cm CBD: 0.3 cm Right Kidney: 9.6 x 4.4 x 4.7 cm Pancreas: visualized portions wnl, limited by overlying midline bowel gas Liver: wnl Gallbladder: wnl Evidence for sonographic Kelly's sign: no CBD: wnl Right Kidney: wnl IMPRESSION: No distinct abnormality appreciated.
== END | disposition home or self-care (01) ==
LOC: RADUSWWP 09:36
PROVIDERS: ATTEND Surgery Plastic and Reconstructive Surgery
DX: K81.1 Chronic cholecystitis (principal)
CPT/HCPCS: 76705

== ENCOUNTER → 2022-08-12 | Outpatient (CLI) | payer MEDICAID ==
--- NOTE | 2022-08-13 09:10 | XR ---
EXAMINATION TYPE: XR Hip Complete LT DATE OF EXAM: 08/12/2022 COMPARISON: 01/24/2017 HISTORY: Pain TECHNIQUE: 2 view left hip FINDINGS: Femoral head articulates with the acetabulum. Joint space appears preserved. There is some very minimal spurring at the inferior left femoral head. No acute osseous abnormalities evident. Foll ow-up can be performed as clinically indicated. IMPRESSION: 1. Very mild degenerative change left hip.
--- NOTE | 2022-08-13 09:11 | XR ---
EXAMINATION TYPE: XR lumbosacral spine min 4V DATE OF EXAM: 08/12/2022 COMPARISON: None HISTORY: Low back pain TECHNIQUE: 5 view lumbar spine FINDINGS: There are 5 lumbar-type vertebral bodies. Pedicles are intact. No spondylolytic defects are evident. Facets appear normal. Vertebral body heights are preserved. Disc heights are preserved. Ali gnment is unremarkable. No acute osseous abnormality evident. Follow-up MRI can be performed as clini vaishnavi indicated. IMPRESSION: 1. No acute osseous abnormality lumbar spine.
== END | disposition home or self-care (01) ==
LOC: RADXRMAIN 16:04
PROVIDERS: ATTEND Physician Assistant Medical
DX: M16.12 Unilateral primary osteoarthritis, left hip (principal); M54.50 Low back pain, unspecified
CPT/HCPCS: 72110; 73502

== ENCOUNTER → 2022-08-16 | Outpatient (CLI) | payer MEDICAID ==
--- NOTE | 2022-08-16 22:01 | US ---
EXAMINATION TYPE: US abdomen complete DATE OF EXAM: 08/16/2022 COMPARISON: US CLINICAL HISTORY: R10.13 EPIGASTRIC PAIN. Epigastric pain x couple months. Hx hernia repair in 2018. TECHNIQUE: Multiple sonographic images of the abdomen are obtained. FINDINGS: EXAM MEASUREMENTS: Liver Length: 15.5 cm Gallbladder Wall: 0.2 cm CBD: 0.2 cm Spleen: 8.4 cm Right Kidney: 11.0 x 5.2 x 4.5 cm Left Kidney: 10.0 x 5.0 x 5.0 cm SIDEWALK INSPECTOR NOTES: Limited due to gas and body habitus. Pancreas: Limited due to gas. Liver: Appears coarse/heterogeneous in echotexture, limited due to gas. Gallbladder: Appears anechoic. Fold seen. Evidence for sonographic Kelly's sign: No CBD: Portions seen appear wnl. Spleen: Limited. Multiple hyperechoic areas seen throughout, largest appears to measure: 0.6 x 0.9 x 0.6 cm. Right Kidney: No hydronephrosis or masses seen Left Kidney: Limited due to gas. No hydronephrosis or masses seen Upper IVC: Appears wnl Abd Aorta: Appears wnl, iliacs were obscured. IMPRESSION: 1. Fatty liver. 2. Splenic granulomas.
--- NOTE | 2022-08-19 19:27 | MM ---
Reason for Exam: Screening (asymptomatic). Last mammogram was performed 1 year(s) and 6 month(s) ago. Patient History: Menarche at age 11. Patient has no children. Last menstrual period: 07/23/2022 Risk Values: Beverly 5 year model risk: 1.0%. NCI Lifetime model risk: 11.4%. Prior Study Comparison: 10/29/2011 Bilateral Diagnostic Mammogram, [facility]. 04/19/2016 Bilateral Screening Mammogram, [facility]. 06/23/2017 Bilateral Diagnostic Mammogram, [facility]. 06/23/2017 Right Diagnostic Ultrasound, [facility]. 04/14/2019 Bilateral Screening Mammogram, [facility]. 04/28/2019 Right Diagnostic Mammogram, [facility]. 02/15/2021 Bilateral Screening Mammogram, [facility]. Tissue Density: There are scattered fibroglandular densities. Findings: Analyzed By CAD. There is no suspicious group of microcalcifications or new suspicious mass in either breast. Overall Assessment: Negative, BI-RAD 1 Management: Screening Mammogram of both breasts in 1 year. 1. Patient should continue monthly self breast exams. 2. A clinical breast exam by your physician is recommended on an annual basis. 3. This exam should not preclude additional follow-up of suspicious palpable abnormalities. Electronically signed and approved by: Ester Funk M.D. Radiologist
== END | disposition home or self-care (01) ==
LOC: RADMAMWWP 14:53
PROVIDERS: ATTEND Family Medicine
DX: Z12.31 Encounter for screening mammogram for malignant neoplasm of breast (principal); K76.0 Fatty (change of) liver, not elsewhere classified; D73.89 Other diseases of spleen
CPT/HCPCS: 76700; 77067

== ENCOUNTER → 2023-02-06 | Outpatient (CLI) | payer MEDICAID ==
--- NOTE | 2023-02-06 17:41 | MR ---
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 IV Contrast: None. FINDINGS: Alignment: The lumbar vertebral bodies have preserved heights and alignment. Cord: The conus medullaris and the distal spinal cord appear unremarkable with regards to their signa l intensity and morphology. Bones/Discs: Bone signal is within normal limits. No abnormal bony edema on inversion recovery sequen moses. Mild disc degeneration is noted and most pronounced at the L4-L5 and L5-S1. Disc desiccation at L3-L4, L4-L5 and L5-S1. T12-L1: No evidence of significant spinal canal stenosis or neural foraminal stenosis. L1-L2: No evidence of significant spinal canal stenosis or neural foraminal stenosis. L2-L3: No evidence of significant spinal canal stenosis or neural foraminal stenosis. L3-L4: Right foraminal disc extrusion which abuts the exiting L3-L4 nerve. The spinal canal is patent L4-L5: No evidence of significant spinal canal stenosis or neural foraminal stenosis. L5-S1: The disc is rounded posterior morphology without significant spinal canal stenosis. Facet join t arthropathy with mild neural foraminal stenosis. Other findings: None. IMPRESSION: 1. L3-L4 right foraminal disc herniation which abuts the exiting nerve which has similar appearance to 2017. No additional evidence for herniation or significant spinal canal or neural foraminal stenos is. 2. Mild disc degeneration with associated osteoarthritic changes.
== END | disposition home or self-care (01) ==
LOC: RADMRIMAIN 16:33
PROVIDERS: ATTEND Physical Medicine & Rehabilitation
DX: M47.817 Spondylosis without myelopathy or radiculopathy, lumbosacral region (principal); M43.16 Spondylolisthesis, lumbar region; M41.26 Other idiopathic scoliosis, lumbar region; M54.51 Vertebrogenic low back pain; M51.36 Other intervertebral disc degeneration, lumbar region
CPT/HCPCS: 72148

== ENCOUNTER → 2023-04-24 | Outpatient (CLI) | payer MEDICAID ==
[2023-04-24 10:01] LABS: Basophils % (A) 1 %; Eosinophils % (A) 1 %; HCT 38.7 % (34.0-46.0); HGB 12.8 gm/dL (11.4-16.0); Lymphocytes # (A) 1.2 k/uL (1.0-4.8); Lymphocytes % (A) 20 %; MCH 30.6 pg (25.0-35.0); MCV 92.8 fL (80.0-100.0); Mean Platelet Volume 7.1; Monocytes # (A) 0.2 k/uL (0-1.0); Monocytes % (A) 4 %; Neutrophils # (A) 4.4 k/uL (1.3-7.7); Neutrophils % (A) 74 %; Platelet Count 278 k/uL (150-450); RBC 4.17 m/uL (3.80-5.40); RDW 13.8 % (11.5-15.5); WBC 5.9 k/uL (3.8-10.6)
[2023-04-24 16:48] LABS: ALT 25 U/L (8-49); AST 20 U/L (13-35); Albumin 4.2 d/dL (3.8-4.9); Albumin/Globulin Ratio 1.68 Ratio (1.60-3.17); Alkaline Phosphatase 61 U/L (41-126); Blood Urea Nitrogen 12.8 mg/dL (9.0-27.0); Calcium 9.3 mg/dL (8.7-10.3); Carbon Dioxide 25.4 mmol/L (21.6-31.8); Chloride 106 mmol/L (96-109); Chol/HDL Ratio 3.03 Ratio; Globulin 2.5 d/dL (1.6-3.3); Glucose 78 mg/dL (70-110); Potassium 4.1 mmol/L (3.5-5.5); Sodium 140 mmol/L (135-145); Total Bilirubin 0.4 mg/dL (0.3-1.2); Total Protein 6.7 d/dL (6.2-8.2); VLDL Calculation 12.16 mg/dL (5.00-40.00)
== END | disposition home or self-care (01) ==
LOC: LABWHC1 08:24
PROVIDERS: ATTEND Family Medicine
DX: Z13.220 Encounter for screening for lipoid disorders (principal); Z13.228 Encounter for screening for other metabolic disorders; E56.9 Vitamin deficiency, unspecified
CPT/HCPCS: 36415; 80053; 80061; 82306; 83036; 84443; 85025

== ENCOUNTER → 2023-11-03 | Outpatient (CLI) | payer MEDICAID ==
[2023-11-04 03:28] LABS: Basophils # (A) 0.04 X 10*3/uL (0.00-0.10); Basophils % (A) 0.5 %; Eosinophils # (A) 0.04 X 10*3/uL (0.04-0.35); Eosinophils % (A) 0.5 %; HCT 39.4 % (37.2-50.0); HGB 12.9 g/dL (12.0-17.0); Lymphocytes # (A) 2.09 X 10*3/uL (0.90-5.00); Lymphocytes % (A) 26.5 %; MCH 29.9 pg (27.0-32.0); MCHC 32.7 g/dL (32.0-37.0); MCV 91.2 FL (80.0-97.0); Mean Platelet Volume 9.7 FL (9.5-12.2); Monocytes # (A) 0.45 X 10*3/uL (0.20-1.00); Monocytes % (A) 5.7 %; NRBC Per 100 WBC 0 X 10*3/uL (0.00-0.01); Neutrophils # (A) 5.25 X 10*3/uL (1.80-7.70); Neutrophils % (A) 66.4 %; Platelet Count 287 X 10*3/uL (140-440); RBC 4.32 X 10*6/uL (4.10-5.60); RDW 14.2 % (11.5-14.5)
[2023-11-04 05:16] LABS: ALT 21 U/L (8-49); AST 21 U/L (13-35); Albumin 4.4 g/dL (3.8-4.9); Albumin/Globulin Ratio 1.42 Ratio (1.60-3.17); Alkaline Phosphatase 68 U/L (41-126); Blood Urea Nitrogen 12.6 mg/dL (9.0-27.0); Calcium 10.2 mg/dL (8.7-10.3); Carbon Dioxide 25.3 mmol/L (21.6-31.8); Chloride 99 mmol/L (96-109); Chol/HDL Ratio 2.91 Ratio; Globulin 3.1 g/dL (1.6-3.3); Glucose 81 mg/dL (70-110); Iron 71 UG/DL (50-175); LDL Cholesterol,Calculated 125.1 mg/dL (0.0-131.0); Potassium 3.8 mmol/L (3.5-5.5); Sodium 137 mmol/L (135-145); Total Bilirubin 0.3 mg/dL (0.3-1.2); Total Iron Binding Capacity 461 UG/DL (228-460); Total Protein 7.5 g/dL (6.2-8.2); VLDL Calculation 18.14 mg/dL (5.00-40.00)
== END | disposition home or self-care (01) ==
LOC: LABWHC1 16:21
PROVIDERS: ATTEND Nurse Practitioner Family
DX: Z13.21 Encounter for screening for nutritional disorder (principal); Z13.220 Encounter for screening for lipoid disorders; Z13.228 Encounter for screening for other metabolic disorders; Z13.29 Encounter for screening for other suspected endocrine disorder
CPT/HCPCS: 36415; 80053; 80061; 82306; 82607; 82728; 82746; 83036; 83540; 83550; 84443; 85025

== ENCOUNTER → 2024-03-06 | Outpatient (CLI) | payer MEDICAID ==
[2024-03-06 13:17] LABS: T4, Free (Free Thyroxine) 1.27 ng/dL (0.80-1.80)
== END | disposition home or self-care (01) ==
LOC: LABWHC1 10:02
PROVIDERS: ATTEND Dermatology MOHS-Micrographic Surgery
DX: L21.8 Other seborrheic dermatitis (principal); L66.1 Lichen planopilaris; L70.0 Acne vulgaris
CPT/HCPCS: 36415; 84439; 84443

== ENCOUNTER 2024-03-23 10:50 | Day surgery (SDC) | payer MEDICAID ==
[2024-03-17 11:37] VITALS: BMI 39.9
[2024-03-23] MEDS: IV FLUID CONTINUATION 1,000 ML IV ONE (11:30)
[2024-03-23] MEDS: LACTATED RINGERS 1,000 ML IV SCH (11:30)
[2024-03-23] MEDS ORDERED: LIDOCAINE 1% INJ 10MG/ML (20 ML MDV) ONE (11:33)
[2024-03-23] MEDS ORDERED: PROPOFOL 10 MG/ML 20 ML VIAL IV ONE (11:33)
--- NOTE | 2024-03-23 11:45 | P.PCN ---
Date of Procedure: 03/23/24 Procedure(s) Performed: Preoperative Dx: GERD Postoperative Dx: Gastritis, hiatal hernia Procedure: EGD with Bx Anesthesia: Sedation Endoscopist: Dr. Angeles Specimens: Antrum Endoscopic Procedure: The patient was on the endoscopy table in the left decubitus position. The Olympus gastroscope was inserted into the oropharynx and passed under direct visualization to the region of the third portion of the duodenum. From that point the scope was slowly withdrawn inspecting all surfaces carefully. There were no neoplastic inflammatory or polypoid lesions throughout the duodenum. The pylorus was widely patent. The stomach was carefully inspected. There was mild gastritis present. A biopsy of the antrum took place to rule out H. pylori. Retroflexion revealed a recurrent hiatal hernia. The diaphragmatic hiatus appeared only slightly dilated however the GE junction was present 2 to 2.5 cm above the diaphragm. There were no inflammatory changes. The remainder the esophagus appeared normal. The patient was then taken to the recovery room in stable condition per anesthesia guidelines. Recommendations: Begin antiacid therapy. Continue antireflux measures.
[2024-03-23 12:08] VITALS: BP 120/83; PULSE 78; RESP 15
== END 2024-03-23 12:25 | disposition home or self-care (01) ==
LOC: ORWHC2ENDO 10:50
PROVIDERS: ATTEND Surgery
DX: K29.50 Unspecified chronic gastritis without bleeding (principal); K21.9 Gastro-esophageal reflux disease without esophagitis; K44.9 Diaphragmatic hernia without obstruction or gangrene; Z98.890 Other specified postprocedural states; Z88.0 Allergy status to penicillin
CPT/HCPCS: 81025; 88305; 43239; J2001; J2704

== ENCOUNTER → 2025-05-02 | Outpatient (CLI) | payer MEDICAID ==
--- NOTE | 2025-05-02 09:37 | MM ---
Reason for Exam: Screening (asymptomatic). Last mammogram was performed 2 year(s) and 8 month(s) ago. Patient History: Menarche at age 11. Patient has no children. Premenopausal. Last menstrual period: 04/17/2025 Risk Values: Beverly 5 year model risk: 1.1%. NCI Lifetime model risk: 8.8%. Prior Study Comparison: 04/19/2016 Bilateral Screening Mammogram, [facility]. 06/23/2017 Bilateral Diagnostic Mammogram, [facility]. 04/14/2019 Bilateral Screening Mammogram, [facility]. 04/28/2019 Right Diagnostic Mammogram, [facility]. 02/15/2021 Bilateral Screening Mammogram, [facility]. 08/16/2022 Bilateral MG screening mammo w CAD, [facility]. Tissue Density: There are scattered areas of fibroglandular density. Findings: Analyzed By CAD. There is no suspicious group of microcalcifications or new suspicious mass in either breast. Overall Assessment: Negative, BI-RAD 1 Management: Screening Mammogram of both breasts in 1 year. Patient should continue monthly self-breast exams. A clinical breast exam by your physician is recommended on an annual basis. This exam should not preclude additional follow-up of suspicious palpable abnormalities. Note on Beverly scores and lifetime risk: 1. A Beverly score greater than 3% is considered moderate risk. If this is the case, consider specialist referral to assess eligibility for a risk reducing agent. 2. If overall lifetime risk for the development of breast cancer is 20% or higher, the patient may qualify for future screening with alternating mammogram and breast MRI. [facility], , 05/02/2025 9:34 AM. Electronically signed and approved by: Ester Funk M.D. Radiologist
== END | disposition home or self-care (01) ==
LOC: RADMAMWWP 07:48
PROVIDERS: ATTEND Family Medicine
DX: Z12.31 Encounter for screening mammogram for malignant neoplasm of breast (principal); R92.323 Mammographic fibroglandular density, bilateral breasts
CPT/HCPCS: 77063; 77067